=== PATIENT | female | born 1945 | race Caucasian/White ===

== ENCOUNTER 2017-08-07 18:16 | Emergency (ER) | payer MEDICARE | END 2017-08-07 18:53 | disposition home or self-care (01) | LOC: EDH 18:16 | DX: H10.022 Other mucopurulent conjunctivitis, left eye (principal); E11.9 Type 2 diabetes mellitus without complications; K21.9 Gastro-esophageal reflux disease without esophagitis; E78.5 Hyperlipidemia, unspecified; I10 Essential (primary) hypertension; J45.909 Unspecified asthma, uncomplicated; E07.9 Disorder of thyroid, unspecified; Z88.1 Allergy status to other antibiotic agents; Z88.8 Allergy status to other drugs, medicaments and biological substances ==

== ENCOUNTER → 2021-03-24 | Outpatient (CLI) | payer MEDICARE | END | disposition home or self-care (01) | LOC: RAH 08:38 | PROVIDERS: ATTEND Orthopaedic Surgery | DX: S83.282A Other tear of lateral meniscus, current injury, left knee, initial encounter (principal); M71.22 Synovial cyst of popliteal space [Baker], left knee; M17.12 Unilateral primary osteoarthritis, left knee; X58.XXXA Exposure to other specified factors, initial encounter; Y93.89 Activity, other specified; Y92.89 Other specified places as the place of occurrence of the external cause; Y99.8 Other external cause status | CPT/HCPCS: 73721 ==

== ENCOUNTER → 2023-07-20 | Outpatient (CLI) | payer MEDICARE ==
[~2023-07-20] MED LIST: IOHEXOL 350 MG/ML 100ML INFUS..BTL IV ONE
== END | disposition home or self-care (01) ==
LOC: RAH 08:47
PROVIDERS: ATTEND Student in an Organized Health Care Education/Training Program
DX: R00.2 Palpitations (principal)
CPT/HCPCS: 75574; Q9967

== ENCOUNTER 2024-08-21 09:20 | Day surgery (SDC) | payer MEDICARE ==
[2024-08-16 11:59] VITALS: BP 174/85; PULSE 76; RESP 18; TEMP 97
[2024-08-16 11:59] LABS: BASOPHILS # (AUTO) 0.09 K/uL (0.00-0.20); BASOPHILS % (AUTO) 1.1 % (0.0-5.0); EOSINOPHILS # (AUTO) 0.24 K/uL (0.00-0.70); HEMATOCRIT 35.2 % (36-48); IMMATURE GRANULOCYTE ABSOLUTE 0.03 K/uL (0-1); LYMPHOCYTES # (AUTO) 2.1 K/uL (1.0-4.8); LYMPHOCYTES % (AUTO) 26.6 % (21.0-51.0); MEAN CORPUSCULAR HEMOGLOBIN 29.1 pg (27.0-33.0); MEAN CORPUSCULAR VOLUME 93.9 fL (79-99); MONOCYTES # (AUTO) 0.6 K/uL (0.1-1.0); MONOCYTES % (AUTO) 6.9 % (3.0-13.0); PLATELET COUNT (AUTO) 253 K/uL (130-400); RED BLOOD CELL COUNT(AUTO) 3.75 MIL/uL (4.00-5.50); RED CELL DISTRIBUTION WIDTH 14.4 % (11.0-15.5)
[2024-08-16 12:09] LABS: INR 0.94 (0.85-1.15); PROTHROMBIN TIME 10.6 SEC (9.6-11.6)
[2024-08-16 12:11] LABS: PARTIAL THROMBOPLASTIN TIME 25.1 SEC (26.3-35.5)
[2024-08-16 12:15] LABS: CREATININE 1.4 mg/dL (0.5-1.0); POTASSIUM 4.4 mmol/L (3.5-5.1)
[2024-08-21] VITALS (8 sets, daily range): BP systolic 140–210; BP diastolic 50–81; PULSE 68–94; RESP 11–18; TEMP 97–97.2
[~2024-08-21] VITALS: Ht 165.1 cm; Wt 72.8 kg
[~2024-08-21 09:20] MED LIST changes: +ACET-3305 PO; +CALC-1105 PO; +CETI10TA57 PO; +FLUT1BLS12 IH; +FOLI0.8C PO; +GABA-529 PO; -IOHEXOL 350 MG/ML 100ML INFUS..BTL IV ONE; +IRON1CAP30 PO; +LETR2.5T7 PO; +LEVO75CA5 PO; +LISI10TA24 PO; +MAGN100C6 PO; +METF-444 PO; +METF-446 PO; +METO-391 PO; +MONT-39 PO; +MULT-1250 PO; +OXYB5TAB20 PO; +PANT40TA54 PO; +PRAV40TA3 PO; +VITAMIN B12 PO
[2024-08-21] MEDS: 0.9%NACL 1000ML 1,000 ML IV SCH (10:28)
[2024-08-21] MEDS ORDERED: HEParin 10,000 UNIT/10ML (1,000 UNIT/ML) VIAL ONE (11:18)
[2024-08-21] MEDS ORDERED: LIDOCAINE HCL 1% MDV 50ML VIAL ONE (11:18)
[2024-08-21] MEDS ORDERED: MIDAZOLAM HCL 1 MG/ML 2ML VIAL ONE (11:59)
[2024-08-21] MEDS ORDERED: FENTanyl CITRate PF 50 MCG/1 ML 2ML VIAL ONE (11:59)
[2024-08-21] MEDS ORDERED: ISOPROTERENOL HCL 0.2 MG/ML AMP/VIAL/BAG ONE (12:01)
--- NOTE | 2024-08-21 14:56 | EKG ---
[facility] Test Date: 2024-08-21 Test Time: 15:31:28 Pat Name: CYNTHIA REED Department: [facility] Room: [facility] 16 Gender: F Curriculum Director: [id number] : 1945 Requested By: RICH MERCADO Order Number: [id number] Reading MD: Fátima Tariq Measurements Intervals [place] Rate: 73 P: 58 [place]: 137 QRS: 22 QRSD: 77 T: 71 QT: 405 QTc: 446 Interpretive Statements Sinus rhythm No previous ECG available for comparison Electronically Signed On 08-22-2024 17:09:35 [employer]LECT[employer] MAINTENA[employer]CE SUPERVISOR by Fátima Tariq Please click the below link to view image of tracing.
--- NOTE | 2024-08-21 16:10 | NUR ---
S[place]THER[place] UTE OF 8 STITCH WITH STOPCOCK REMOVED PER PROTOCOL BY ISAIAS MIRANDA RN. DSTAT APPLIED. NO SIGN OF BLEEDING, BRUISING OR HEMATOMA. FULL AND COMPLETE DISCHARGE INSTRUCTIONS GIVEN BOTH VERBALLY AND IN WRITING TO PATIENT AND FAMILY. ALL QUESTIONS ANSWERED. PIV REMOVED WITH CATHETER TIP INTACT. C/O MILD GASTRIC REFLUX SHE HAS GASTROPARESIS AND LIED FLAT FOR ABOUT 4 HOURS. ATE SEVERAL SALTINE CRACKERS PROVIDED AND RESOLVED. NO CHANGES IN RHYTHM OR CHEST PAIN EVIDENT. DENIES CURRENT PAIN OR NAUSEA. VOICED UNDERSTANDING TO Ablation Femoral Precautions, INSTRUCTIONS AND FOLLOW UP. W/C TO POV WITH FAMILY TO HOME.
== END 2024-08-21 16:10 | disposition home or self-care (01) ==
LOC: DAH 09:20
PROVIDERS: ATTEND Internal Medicine Cardiovascular Disease
DX: I47.10 Supraventricular tachycardia, unspecified (principal); I10 Essential (primary) hypertension; K21.9 Gastro-esophageal reflux disease without esophagitis; E03.9 Hypothyroidism, unspecified; E11.9 Type 2 diabetes mellitus without complications; J45.909 Unspecified asthma, uncomplicated; G47.30 Sleep apnea, unspecified; M19.90 Unspecified osteoarthritis, unspecified site; E78.00 Pure hypercholesterolemia, unspecified; Z90.710 Acquired absence of both cervix and uterus; Z79.01 Long term (current) use of anticoagulants; Z88.0 Allergy status to penicillin; Z88.1 Allergy status to other antibiotic agents; Z79.899 Other long term (current) drug therapy; Z98.890 Other specified postprocedural states
CPT/HCPCS: 80048; 85025; 85610; 85730; 36415; 93623; 93653; 93005; A4223 ×3; A4554; C1894 ×3; C1732 ×3; A4649 ×2; C1766; J3010; J7030; J3490 ×2; J1644; J2250; A4215; A6402; A4335; A4222; A6260; A4221; A4663; A4216; A6258; A4606; 99156; 99157

== ENCOUNTER → 2025-01-29 | Outpatient (CLI) | payer MEDICARE ==
[~2025-01-29] MED LIST changes: -LEVO75CA5 PO; +LEVO75CA6 PO; -PRAV40TA3 PO; +PRAV40TA62 PO
--- NOTE | 2025-01-29 16:29 | HMCIMG ---
US ARTERIAL BILAT LOW EXT DUPL HISTORY: Peripheral vascular disease COMPARISON: 07/24/2028 TECHNIQUE: Bilateral lower extremity arterial Doppler ultrasound study was performed. FINDINGS: Abnormal monophasic arterial waveform is seen in the left posterior tibial artery. Biphasic arterial waveforms are noted in the common femoral, deep femoral, superficial femoral, popliteal, anterior tibial, and dorsalis pedal arteries. Biphasic arterial waveform is seen in the left posterior tibial artery. On the right, the peak systolic velocity of the common femoral artery is 104 cm/s, the proximal femoral artery is 100 cm/s, the mid femoral artery is 93 cm/s, the distal femoral artery is 90 cm/s, the proximal popliteal artery is 90 cm/s, the distal popliteal artery is 82 cm/s, the anterior tibial artery is 90 cm/s, the posterior tibial artery artery is 142 cm/s,and the dorsalis pedal artery is 73 cm/s. On the left, the peak systolic velocity of the common femoral artery is 119 cm/s, the proximal femoral artery is 89 cm/s, the mid femoral artery is 93 cm/s, the distal femoral artery is 87 cm/s, the proximal popliteal artery is 84 cm/s, the distal popliteal artery is 61 cm/s, the anterior tibial artery is 104 cm/s, the posterior tibial artery artery is 30 cm/s,and the dorsalis pedal artery is 90 cm/s. IMPRESSION: 1. Atherosclerotic disease. 2. Abnormal monophasic arterial waveform is seen in the left posterior tibial artery.
== END | disposition home or self-care (01) ==
LOC: RAH 14:34
PROVIDERS: ATTEND Dermatology
DX: I70.203 Unspecified atherosclerosis of native arteries of extremities, bilateral legs (principal)
CPT/HCPCS: 93925